=== PATIENT | male | born 1990 | race Caucasian/White ===

== ENCOUNTER 2021-05-12 16:41 | Emergency (ER) | payer OTHER, SELFPAY ==
[2021-05-12 16:54] VITALS: BP 123/77; PULSE 85; RESP 18; TEMP 36.8; O2SAT 99
--- NOTE | 2021-05-12 17:35 | ED.GENADULT ---
HPI - General Adult General Chief complaint: Skin/Abscess/Foreign Body Stated complaint: right foot non healing wound Source: patient and RN notes reviewed Mode of arrival: ambulatory History of Present Illness HPI narrative: This is a 31-year-old male that presented to urgent care status post trauma to his right foot. According to patient he injured his right foot patient notes that his foot has not healed since April 28. He also had injury to his opposite foot which is currently healed. He notes that he cleans his foot on a daily basis with soap and water and apply to Neosporin. He notes that he noticed a discharge from one of the sites and decided to come in to be treated for an infection. The patient denies SOB, CP, palpitation, extremity numbness, lightheadedness, dizziness, constipation, diarrhea, chills, or fever. Patient has full range of motion with the affected feet pulses are palpable sensation is present no neurovascular defects noted Related Data Home Medications Medication Instructions Recorded Confirmed imiquimod TOPICAL 05/12/21 lorazepam 05/12/21 phenytoin sodium extended PO 05/12/21 topiramate 05/12/21 Allergies Allergy/AdvReac Type Severity Reaction Status Date / Time No Known Allergies Allergy Unverified 05/12/18 07:14 Review of Systems Review of Systems: A 14 organ system Review of Systems was performed and pertinent positives included in the HPI, otherwise remaining ROS is negative. [facility] Family History Family History (Updated 05/12/21 @ 17:36 by FLORECITA Feng-Carla) Other Family history non-contributory Exam Narrative: GENERAL: This is a well-nourished, well-developed patient, in no apparent distress. HEAD: normocephalic, atraumatic. EYES: PERRL. Sclera clear/white. Vision is grossly intact. EARS: External ears normal, auditory canals clear and without drainage, TMs normal without perforation. Hearing grossly intact. NOSE: External nose normal with no obvious nasal discharge, nares without redness, no rhinorrhea. THROAT: Mucous membranes moist, posterior pharynx clear. NECK: Neck supple, non-tender without lymphadenopathy, masses or thyromegaly. CARDIOVASCULAR: Regular rate and rhythm without murmurs, gallops, or rubs. RESPIRATORY: Clear to auscultation. Breath sounds equal bilaterally. No wheezes, rales, or rhonchi. GASTROINTESTINAL: Abdomen soft, non-tender, nondistended. Bowel sounds are active. No hepato-splenomegaly, or palpable masses. No guarding. SKIN: warm, intact with no suspicious lesions or rash, good texture and turgor. NEURO: awake, alert, and oriented to person, place and time. There were no obvious focal neurologic abnormalities. Steady gait EXTREMITIES: Normal range of motion. No edema. No calf tenderness. Negative Homans sign bilaterally. Right foot with 2 open sores right below big toe and second toe partially scabbed over clear discharge. BACK: Nontender without deformity or crepitance. No flank tenderness. Course Course Emergency Course: Patient given clindamycin Vital Signs Vital signs: Vital Signs Temperature 98.3 F 05/12/21 16:54 Pulse Rate 85 05/12/21 16:54 Respiratory Rate 18 05/12/21 16:54 Blood Pressure 123/77 05/12/21 16:54 Pulse Oximetry 99 05/12/21 16:54 Temperature 98.3 F 05/12/21 16:54 Pulse Rate 85 05/12/21 16:54 Respiratory Rate 18 05/12/21 16:54 Blood Pressure 123/77 05/12/21 16:54 Pulse Oximetry 99 05/12/21 16:54 Medical Decision Making Differential Diagnosis Differential Diagnosis: Cellulitis, contact dermatitis Vital Signs Vital Signs: Vital Signs Temperature 98.3 F 05/12/21 16:54 Pulse Rate 85 05/12/21 16:54 Respiratory Rate 18 05/12/21 16:54 Blood Pressure 123/77 05/12/21 16:54 Pulse Oximetry 99 05/12/21 16:54 Temperature 98.3 F 05/12/21 16:54 Pulse Rate 85 05/12/21 16:54 Respiratory Rate 18 05/12/21 16:54 Blood Pressure 123/77 05/12/21 16:54 Pulse
== END 2021-05-12 17:53 | disposition home or self-care (01) ==
PROVIDERS: Emergency Provider Nurse Practitioner
DX: L03.115 Cellulitis of right lower limb (principal)
CPT/HCPCS: 99213; G0463